=== PATIENT | female | born 1960 | race Caucasian/White ===

== ENCOUNTER → 2025-08-10 11:04 | Outpatient (CLI) | payer OTHER, SELFPAY ==
--- NOTE | 2025-08-10 11:07 | DI.MRI.S_ITS ---
PROCEDURE: MR HEAD/BRAIN WO CON INDICATIONS: Dizziness TECHNIQUE: Non-contrast axial T1 spin echo, axial T2 fast spin echo, sagittal and axial FLAIR, coronal T2 fast spin echo, axial gradient echo, axial diffusion and ADC through the brain. COMPARISON: None. FINDINGS: Image quality: Excellent. CSF spaces: Ventricles appear symmetric in size and shape. Basal cisterns are patent. No extra-axial fluid collections. Brain: No intracranial bleeds or mass effects. Scattered supratentorial white matter T2/FLAIR hyperintensities are nonspecific and most consistent with minimal chronic microvascular ischemic change. Brainstem appears normal. Diffusion-weighted images show no acute infarct. No chronic ischemic insults. Normal intravascular flow voids are present. Skull and face: Calvarial bone marrow is normal in signal. Orbits are normal. Sinuses: Sinuses and mastoids are clear. IMPRESSION: No acute intracranial abnormalities. Minimal chronic microvascular ischemic change. Approved by: Mazin Wilson M.D. on 08/11/2025 at 19:56
== END ==
LOC: MRI 11:07
PROVIDERS: PCP Student in an Organized Health Care Education/Training Program; Referring Provider Student in an Organized Health Care Education/Training Program; Visit Provider Student in an Organized Health Care Education/Training Program
DX: R42 Dizziness and giddiness (principal)
CPT/HCPCS: 70551